=== PATIENT | male | born 1985 | race Two or more races ===

== ENCOUNTER 2019-06-13 18:36 | Emergency (ER) | payer BC ==
[~2019-06-13] VITALS: Ht 180.3 cm; Wt 114.3 kg
[2019-06-13 18:42] VITALS: BP 127/89
[2019-06-13] MEDS ORDERED: DIAZEPAM 5 MG TABLET ONE (19:14)
[2019-06-13] MEDS ORDERED: KETOROLAC TROMETHAMINE INJ 30 MG/ML VIAL ONE (19:14)
--- NOTE | 2019-06-13 19:21 | NUR ---
ENDORSED TO ED FOR TELMA.
--- NOTE | 2019-06-13 19:21 | NUR ---
ASSUMED CARE. PT LAYING IN BED, NO ACUTE DISTRESS NOTED, RESP EVEN AND UNLABORED. PT STILL C/O BACK PAIN. PT WAS RECENTLY MEDICATED BY TIERA DEVRIES. WILL CONTINUE TO MONITOR PT CLOSELY.
[2019-06-13] MEDS ORDERED: DIAZEPAM 10 MG TABLET PO ONE (19:30)
[2019-06-13] MEDS ORDERED: KETOROLAC TROMETHAMINE INJ 30 MG/ML VIAL IM ONE (19:30)
== END 2019-06-13 20:31 | disposition home or self-care (01) ==
LOC: EDBD 18:36 → ER 18:36
DX: M54.5 Low back pain (principal); F32.9 Major depressive disorder, single episode, unspecified; F41.9 Anxiety disorder, unspecified
CPT/HCPCS: 96372; 99283; J1885